=== PATIENT | female | born 1950 | race Caucasian/White ===

== ENCOUNTER 2025-03-08 12:18 | Emergency (ER) | payer MEDICARE, SELFPAY ==
[2025-03-08 12:19] VITALS: BP 154/72; PULSE 78; RESP 16; TEMP 36.6; O2SAT 99
[2025-03-08 12:20] VITALS: BMI 27.3
--- NOTE | 2025-03-08 13:30 | CT_ITS ---
PROCEDURE: BRAIN/HEAD WITHOUT CONTRAST 03/08/2025 REASON FOR EXAM: INJURY/PAIN TECHNIQUE: Procedure Code: CTBR Modality: CT Procedure: BRAIN/HEAD WITHOUT CONTRAST Coronal and Sagittal reconstruction series were provided. One or more dose reduction techniques were used (e.g., Automated exposure control, adjustment of the mA and/or kV according to patient size, use of iterative reconstruction technique. RADIATION DOSE SUMMARY: CTDlvol: 57.17 mGy DLP: 1090.39 mGycm COMPARISON: None FINDINGS: Brain: Within normal limits for age CSF Spaces: Normal Sinuses/Mastoids: Clear at visualized levels Bones: No skull fracture or scalp hematoma CT/Brain/Head without Contrast IMPRESSION: Age consistent changes, no acute findings Reading Location: [id number]
--- NOTE | 2025-03-08 13:30 | CT_ITS ---
PROCEDURE: SPINE CERVICAL WITHOUT CONTRAS 03/08/2025 REASON FOR EXAM: INJURY/PAIN TECHNIQUE: Procedure Code: CTSPC Modality: CT Procedure: SPINE CERVICAL WITHOUT CONTRAS Coronal and Sagittal reconstruction series were provided. One or more dose reduction techniques were used (e.g., Automated exposure control, adjustment of the mA and/or kV according to patient size, use of iterative reconstruction technique. RADIATION DOSE SUMMARY: CTDlvol: 58.17 mGy DLP: 1090.39 mGycm COMPARISON: None FINDINGS: Alignment: Alignment of the cervical spine is anatomic. Vertebrae: No fracture or suspicious osseous lesion Soft Tissues: Prevertebral soft tissues are unremarkable Other: Normal relationship between C7 and T1 C1-2: Unremarkable C2-3: Mild disc space narrowing, no central canal or foraminal narrowing C3-4: Mild disc space narrowing, no central canal or foraminal narrowing C4-5: Moderate disc space narrowing with broad-based central disc bulge. Some flattening of the anterior thecal sac but no central canal or foraminal narrowing C5-6: Moderate disc space narrowing with broad-based central disc bulge. Some flattening of the anterior thecal sac but no central canal or foraminal narrowing C6-7: Mild disc space narrowing with broad-based central disc bulge and posterior uncovertebral spurs. No central canal narrowing, bilateral foraminal narrowing due to spurring C7-T1: Mild disc space narrowing, no central canal or foraminal narrowing CT/Spine Cervical without Contras IMPRESSION: Multilevel degenerative changes, no demonstrated fracture or suspicious osseous lesion Reading Location: [id number]
--- NOTE | 2025-03-08 13:40 | RAD_ITS ---
PROCEDURE: KNEE 4 OR MORE VIEWS 03/08/2025 REASON FOR EXAM: INJURY/PAIN Pain, stiffness TECHNIQUE: Procedure Code: RADKN Modality: DX Procedure: KNEE 4 OR MORE VIEWS Laterality: Left COMPARISON: None FINDINGS: Bones: No demonstrated fracture or suspicious osseous lesion Joints: Mild narrowing of the medial and posterior patellar compartments, the lateral compartment is well-preserved Effusion: No joint effusion or soft tissue swelling RAD/Knee 4 or More Views IMPRESSION: Mild degenerative changes, no acute findings Reading Location: [id number]
--- NOTE | 2025-03-08 14:25 | EX.ED.GENINJ ---
HPI History of Present Illness Chief Complaint: Fall Narrative Narrative: Patient is a 74-year-old female not on any blood thinners does take daily aspirin presenting for evaluation after mechanical fall. She was at the [facility] when she tripped on the last step. She tried to catch herself with her outstretched hands and also landed on her left knee. Is having pain and some swelling and bruising to her left knee and also to have pain to her neck and a headache. She states that she does get tension headaches and neck pain from time to time. Did not take anything prior to arrival. Denies any loss of conscious. States she is otherwise been in her normal state of health. Denies any vision changes, numbness or tingling. No other complaints or concerns at this time. [facility] Medical History Hyperlipidemia Depression DM2 (diabetes mellitus, type 2) Benign intracranial hypertension Home Medications ?Medication ?Instructions ?Recorded ?Last Taken ?Type cholecalciferol (vitamin D3) .ROUTE 03/08/25 Unknown History digoxin 125 mcg (0.125 mg) tablet 125 mcg PO DAILY 03/08/25 Unknown History furosemide 40 mg tablet 40 mg PO BID 03/08/25 Unknown History insulin aspar prot-insulin aspart 15 unit subcut BID 03/08/25 Unknown History 100 unit/mL (70-30) subcutaneous pen (Novolog Mix 70-30FlexPen U-100) insulin glargine 100 unit/mL (3 unit subcut 03/08/25 Unknown History mL) subcutaneous pen (Lantus Solostar U-100 Insulin) mecobalamin (vitamin B12) PO 03/08/25 Unknown History sertraline 100 mg tablet 200 mg PO DAILY 03/08/25 Unknown History Allergy/AdvReac Type Severity Reaction Status Date / Time No Known Allergies Allergy Verified 03/08/25 12:20 Social History Smoking Status: Never smoker ROS ROS ED Constitutional Constitutional ED: Denies chills or fever(s) Eyes Eyes: Denies blurry vision or change in vision Cardiovascular Cardiovascular: Denies chest pain Respiratory/Chest Respiratory/Chest: Denies cough or dyspnea Gastrointestinal Gastrointestinal: Denies nausea or vomiting Musculoskeletal Musculoskeletal: Reports neck pain and other Details: Left knee pain Integumentary Reports Abrasions Neurologic Neurologic: Reports headache(s); Denies paresthesias or weakness Psychiatric Psychiatric: Denies anxiety Hematologic/Lymphatic Hematologic/Lymphatic: Denies easy bleeding or easy bruising EXAM Physical Exam Const Vital Signs: 03/08/25 12:19 03/08/25 12:30 Temperature 97.8 F Temperature Source Oral Pulse Rate 78 Respiratory Rate 16 Respiratory Effort Normal Blood Pressure 154/72 H Blood Pressure Mean 99 Pulse Ox 99 Oxygen Delivery Method Room Air Positive well nourished and well developed General Appearance ED: well developed and NAD HEENT Reports TM's clear HEENT Narrative: No signs of basilar skull fracture atraumatic Nose: Negative for septum abnormal Tympanic Membrane ED: Yes TM's clear Eyes PERRL Chest Wall inspection of chest normal and palpation of chest normal Resp normal respiratory effort and clear to auscultation bilaterally Cardio regular rhythm and no murmurs Cardio Narrative: 2+ radial DP pulses, no pedal edema appreciated Rate: regular rate GI normal to inspection, nondistended, normoactive bowel sounds and non-tender Back/Spine normal to inspection Back/Spine Narrative: Mild tenderness palpation of the right upper neck and into the occiput. No midline bony tenderness. Normal range of motion. Extremity Extremity Narrative: No obvious deformity of the upper extremities or bony tenderness on palpation. Normal range of motion of upper extremities. Normal right lower extremity. For the left lower extremity she does have small abrasion and some soft tissue swelling/bruising to the left anterior knee. Patella is in appropriate position. Normal extensor mechanism. Normal Kwon test. No joint effusion appreciated the knee. No pain with range of motion of the hip on the left. No ankle tenderness. Neuro oriented x3, moves all extremities, no focal motor deficits and no sensory deficits noted [place] Coma Scale: document GCS findings Spontaneous Obeys Commands Oriented 15 Psych mental status grossly normal and thought process normal Skin no rashes or lesions noted Skin Narrative: Superficial nonbleeding scattered abrasion to the left anterior knee. There is some associated ecchymosis to the area as well. MDM MDM MDM Narrative Medical decision making narrative: Patient evaluated after mechanical fall with associated left knee injury. She is also now starting to complain of some increased neck pain and headache. Differential includes tension headache, neck strain, cervical spine fracture, intracranial hemorrhage, knee contusion, patellar fracture and patellar dislocation. Patient given Tylenol in the ER with some improvement of her symptoms he remains hemodynamically stable. Is neurovasc intact in emergency room. X-ray of the knee reviewed by myself as radiology shows some degenerative changes no acute findings. CT of the brain and cervical spine does not show any acute traumatic injuries. Patient has equal prototype engineer strength bilaterally and has a normal neurologic exams have low suspicion for cord syndrome. Will be discharged home with instructions alternate ibuprofen and Tylenol as needed for pain control. Counseled on RICE therapy to her knee and given Jaquan wrap in the ER. Able to ambulate. Discharged home in stable and improved condition. Encouraged follow-up with primary care doctor and counseled that she will likely be more sore over the next 2 to 3 days. Radiography Diagnostic Testing: Clinical Impression(s) from Imaging Studies Brain CT 03/08/25 13:30 IMPRESSION: Age consistent changes, no acute findings Reading Location: [facility] Cervical Spine CT 03/08/25 13:30 IMPRESSION: Multilevel degenerative changes, no demonstrated fracture or suspicious osseous lesion Reading Location: [facility] Knee X-Ray 03/08/25 13:40 IMPRESSION: Mild degenerative changes, no acute findings Reading Location: [facility] Discharge Plan Triage Chief Complaint: Fall ED Provider: Jen Fraire Dx/Rx/DC Orders Clinical Impression: Contusion of left knee, Acute strain of neck muscle Instructions: ED Contusion, Lower Extremity, ED Neck Sprain or Strain Prescriptions: No Action furosemide 40 mg tablet 40 mg PO BID sertraline 100 mg tablet 200 mg PO DAILY digoxin 125 mcg (0.125 mg) tablet 125 mcg PO DAILY insulin asp prt-insulin aspart [Novolog Mix 70-30FlexPen U-100] 100 unit/mL (70-30) insulin pen 15 unit subcut BID insulin glargine [Lantus Solostar U-100 Insulin] 100 unit/mL (3 mL) insulin pen SUBCUT Patient Comments: INJECT 30 UNITS SUBCUTANEOUSLY ONCE DAILY MAY TITRATE TO MAX 50 UNITS ONCE DAILY cholecalciferol (vitamin D3) .ROUTE mecobalamin (vitamin B12) [B12 Active] PO Primary Care Provider: BRYAN GODOY Referrals: BRYAN GODOY [Other] Activity Restrictions/Additional Instructions: Rest, ice your knee, wear Jaquan wrap for compression and elevate the leg to help with swelling. Alternate ibuprofen and Tylenol for pain control. Your CT imaging of your head and cervical spine as well as x-ray of your knee did not show any acute traumatic injuries. Follow-up with your primary care doctor as needed. Return if you have worsening symptoms or further concerns. Print Language: Swedish Disposition Disposition: Home, Self Care Discharge Date/Time: 03/08/25 14:34
== END 2025-03-08 14:34 | disposition home or self-care (01) ==
PROVIDERS: Emergency Provider Emergency Medicine; Visit Provider Emergency Medicine
DX: S80.02XA Contusion of left knee, initial encounter (principal); E11.9 Type 2 diabetes mellitus without complications; Z79.4 Long term (current) use of insulin; S16.1XXA Strain of muscle, fascia and tendon at neck level, initial encounter; E78.5 Hyperlipidemia, unspecified; M17.12 Unilateral primary osteoarthritis, left knee; Z79.82 Long term (current) use of aspirin; Z79.899 Other long term (current) drug therapy; R51.9 Headache, unspecified; W10.9XXA Fall (on) (from) unspecified stairs and steps, initial encounter
CPT/HCPCS: 70450; 72125; 73564; 99282